=== PATIENT | male | born 1960 | race Hispanic/Latino ===

== ENCOUNTER → 2019-08-29 | Outpatient (CLI) | payer OTHER | END | disposition home or self-care (01) | LOC: RAH 09:39 | PROVIDERS: ATTEND Family Medicine | DX: Z13.6 Encounter for screening for cardiovascular disorders (principal); Z82.49 Family history of ischemic heart disease and other diseases of the circulatory system | CPT/HCPCS: 75571 ==

== ENCOUNTER → 2025-04-24 | Outpatient (CLI) | payer OTHER ==
--- NOTE | 2025-04-24 13:53 | HMCIMG ---
CHEST 2VWS REASON: LOCALIZED EDEMA COMPARISON: None FINDINGS: Two views of the chest were obtained. Lungs are clear. There is hyperaeration of lungs with flattening of both hemidiaphragms suggesting of chronic obstructive pulmonary disease. Heart size is normal. There is no pulmonary vascular congestion. Mediastinum and bony thorax appear unremarkable. Bony thorax within osteopenia. There is an old right eighth rib fracture with deformity study. IMPRESSION: Chronic obstructive pulmonary disease No evidence of airspace consolidation or pulmonary venous congestion
== END | disposition home or self-care (01) ==
LOC: RAH 11:21
PROVIDERS: ATTEND Internal Medicine
DX: J44.9 Chronic obstructive pulmonary disease, unspecified (principal); M85.88 Other specified disorders of bone density and structure, other site; R60.0 Localized edema
CPT/HCPCS: 71046